=== PATIENT | female | born 1965 | race Caucasian/White ===

== ENCOUNTER 2021-08-01 08:16 | Emergency (ER) | payer OTHER ==
[2021-08-01 09:28] LABS: Appearance SLIGHTLY CLOUDY (CLEAR); Bilirubin SMALL (NEGATIVE); Blood NEGATIVE Ery/ul (0-5); Glucose NEGATIVE (NEGATIVE); Ketones TRACE (NEGATIVE); Leukocyte Esterase NEGATIVE (NEGATIVE); Mucus SLIGHT /HPF (NEGATIVE); Nitrite NEGATIVE (NEGATIVE); Protein,Urine Dip 30 (Negative); Specific Gravity 1.025 (1.005-1.025); Urobilinogen 4 mg/dL (0-1); WBC 0-2 /HPF (0-5)
[2021-08-01 09:46] LABS: ALBUMIN 4.5 g/dL (3.5-5.0); ALKALINE PHOSPHATASE 61 U/L (38-126); ANION GAP 14.9 MEQ/L (5-15); BLOOD UREA NITROGEN 12 mg/dL (7-17); CHLORIDE 107 mmol/L (98-107); Calcium 9.7 mg/dL (8.4-10.2); Carbon Dioxide 26 mmol/L (22-30); Creatinine 1 0.72 mg/dL (0.52-1.04); EST GLOMERULAR FILTRATION RATE > 60.0 ML/MIN; Glucose 91 mg/dL (74-106); Potassium 4.4 mmol/L (3.5-5.1); SGOT/AST 24 U/L (14-36); SGPT/ALT 20 U/L (0-35); SODIUM 143 mmol/L (137-145); Total Protein 7.4 g/dL (6.3-8.2)
[2021-08-01 09:50] LABS: White Blood Count 5.5 K/mm3 (4.0-10.5)
[2021-08-01 09:51] LABS: Absolute Neutrophil Ct (ANC) 2.61 (1.4-6.9); BASOPHIL % 0.4 % (0.0-0.4); Hematocrit 43.6 % (35-47); Hemoglobin 14.2 gm/dl (12.0-16.0); Lymphocytes % 42.2 % (24.0-44.0); Mean Cell Volume 93.8 fl (78-100); Mean Corpuscular Hemoglobin 30.5 pg (26-32); Mean Corpuscular Hgb Concent. 32.6 g/dl (32-36); Mean Platelet Volume 9.7 fl (7.5-11.0); Monocytes % 7.8 % (0.0-12.0); Neutrophil % 47.6 % (36.0-66.0); Platelet Count 304 K/mm3 (150-450); Red Blood Count 4.65 M/mm3 (4.1-5.4); Red Cell Distribution Width 14.7 % (11.5-14.0)
[2021-08-01 09:52] LABS: Basophil (Absolute #) 0.02 (0-0.4); Eosinophil (Absolute #) 0.11 (0-0.5); Lymphocyte (Absolute #) 2.31 (1.0-4.6); Monocyte (Absolute #) 0.43 (0.0-1.3)
[2021-08-01 09:53] VITALS: BP 128/75; PULSE 72; O2SAT 97
--- NOTE | 2021-08-01 12:06 | ERPHSYRPT ---
- History of Present Illness Time Seen by Provider: 08/01/21 08:24 Source: patient Exam Limitations: no limitations Patient Subjective Stated Complaint: PT BELIEVES SHE HAS A RECTAL FISTULA. BM THIS AM. SOFT, FORMED. Triage Nursing Assessment: ALERT AND ORIENTED. ABLE TO GIVE ALL INFORMATION. SKIN PWD. Physician History: 55 years old female with history of perirectal abscess many years ago presented to the ER after she noticed a small bump in the perianal area 2 to 3 days ago, pressed on it and currently does not feel any swelling or discharge. Patient reports having subjective feeling of fever and chills and some bilateral lateral flank area pain few days ago and is worried about having urinary tract infection . No abdominal pain otherwise currently. No nausea or vomiting. Subjective feeling of weakness all over but no focal. Denies any constipation or diarrhea. Allergies/Adverse Reactions: Penicillins Allergy (Severe, Verified 08/01/21 08:43) Anaphylactic Reaction Hx Tetanus, Diphtheria Vaccination/Date Given: Yes (1999) Hx Influenza Vaccination/Date Given: No Hx Pneumococcal Vaccination/Date Given: No Immunizations Up to Date: No Travel Risk - International Travel Have you traveled outside of the country in past 3 weeks: No - Coronavirus Screening Symptoms: Fever, Headaches/Body Aches/Fatigue Close contact with a COVID-19 positive Pt in past 14-21 Days: No - Vaccine Status Have you recieved a Covid-19 vaccination: No - Review of Systems Constitutional: Fever, Chills, Fatigue, Weakness Eyes: No Symptoms Ears, Nose, & Throat: No Symptoms Respiratory: No Symptoms Cardiac: No Symptoms Abdominal/Gastrointestinal: No Symptoms Genitourinary Symptoms: Dysuria Musculoskeletal: No Symptoms Skin: Skin Lesions Neurological: No Symptoms Psychological: No Symptoms Endocrine: No Symptoms Hematologic/Lymphatic: No Symptoms Immunological/Allergic: No Symptoms - Past Medical History Neurological History: No Pertinent History ENT History: No Pertinent History Cardiac History: No Pertinent History Respiratory History: No Pertinent History Endocrine Medical History: No Pertinent History Musculoskeletal History: Fractures GI Medical History: No Pertinent History History: No Pertinent History Psycho-Social History: No Pertinent History Female Reproductive Disorders: Endometriosis, Other - Past Surgical History Past Surgical History: Yes Neuro Surgical History: No Pertinent History Cardiac: No Pertinent History Respiratory: No Pertinent History Gastrointestinal: No Pertinent History Genitourinary: No Pertinent History Musculoskeletal: Orthopedic Surgery Female Surgical History: Tubal Ligation, Other Other Surgical History: ABLASION, WEIGHT LOSS SURGERY, VSG 6 YEARS AGO, - Social History Smoking Status: Current some day smoker Drug Use: none Patient Lives Alone: No (SPOUSE) - Female History Hx Now: No (ABLASION) - Nursing Vital Signs Nursing Vital Signs: Initial Vital Signs Temperature 98.3 F 08/01/21 08:31 Pulse Rate 90 08/01/21 08:31 Respiratory Rate 18 08/01/21 08:31 Blood Pressure 142/78 08/01/21 08:31 O2 Sat by Pulse Oximetry 98 08/01/21 08:31 Pain Scale Pain Intensity 0 - Physical Exam General Appearance: no apparent distress, alert, anxiety Eye Exam: PERRL/EOMI Ears, Nose, Throat Exam: normal ENT inspection, pharynx normal Neck Exam: normal inspection, supple, full range of motion Respiratory Exam: normal breath sounds, lungs clear Cardiovascular Exam: regular rate/rhythm, normal heart sounds Gastrointestinal/Abdomen Exam: soft, normal bowel sounds, No tenderness Rectal Exam: other (Small area of induration/draining at 9 o'clock position with minimal tenderness.), No hemorrhoids Extremity Exam: normal inspection, normal range of motion, pelvis stable Neurologic Exam: alert, oriented x 3, cooperative Skin Exam: normal color SpO2 Interpretation: normal SpO2: 97 O2 Delivery: Room Air Ordered Tests: Active Orders 24 hr Category Date Time Status CBC W DIFF Stat Lab 08/01/21 09:20 Completed CMP Stat Lab 08/01/21 09:20 Completed UA W/RFX UR CULTURE Stat Lab 08/01/21 09:17 Completed Lab/Rad Data: Laboratory Result Diagrams 08/01/21 09:20 08/01/21 09:20 Laboratory Results 08/01/21 08/01/21 08/01/21 Range/Units 09:20 09:20 09:17 WBC 5.5 (4.0-10.5) K/mm3 RBC 4.65 (4.1-5.4) M/mm3 Hgb 14.2 (12.0-16.0) gm/dl Hct 43.6 (35-47) % MCV 93.8 (78-100) fl MCH 30.5 (26-32) pg MCHC 32.6 (32-36) g/dl RDW 14.7 H (11.5-14.0) % Plt Count 304 (150-450) K/mm3 MPV 9.7 (7.5-11.0) fl Gran % 47.6 (36.0-66.0) % Eos # (Auto) 0.11 (0-0.5) Absolute Lymphs (auto) 2.31 (1.0-4.6) Absolute Monos (auto) 0.43 (0.0-1.3) Lymphocytes % 42.2 (24.0-44.0) % Monocytes % 7.8 (0.0-12.0) % Eosinophils % 2.0 (0.00-5.0) % Basophils % 0.4 (0.0-0.4) % Absolute Granulocytes 2.61 (1.4-6.9) Basophils # 0.02 (0-0.4) Sodium 143 (137-145) mmol/L Potassium 4.4 (3.5-5.1) mmol/L Chloride 107 (98-107) mmol/L Carbon Dioxide 26 (22-30) mmol/L Anion Gap 14.9 (5-15) MEQ/L BUN 12 (7-17) mg/dL Creatinine 0.72 (0.52-1.04) mg/dL Estimated GFR > 60.0 ML/MIN Glucose 91 (74-106) mg/dL Calcium 9.7 (8.4-10.2) mg/dL Total Bilirubin 0.40 (0.2-1.3) mg/dL AST 24 (14-36) U/L ALT 20 (0-35) U/L Alkaline Phosphatase 61 (38-126) U/L Serum Total Protein 7.4 (6.3-8.2) g/dL Albumin 4.5 (3.5-5.0) g/dL Urine Color JEFFREY (YELLOW) Urine Appearance SLIGHTLY CLOUDY (CLEAR) Urine pH 6.0 (5-6) Ur Specific [place] 1.025 (1.005-1.025) Urine Protein 30 (Negative) Urine Ketones TRACE (NEGATIVE) Urine Blood NEGATIVE (0-5) Tobin/ul Urine Nitrite NEGATIVE (NEGATIVE) Urine Bilirubin SMALL (NEGATIVE) Urine Urobilinogen 4 (0-1) mg/dL Ur Leukocyte Esterase NEGATIVE (NEGATIVE) Urine WBC (Auto) 0-2 (0-5) /HPF Urine RBC (Auto) 6-10 (0-2) /HPF U Epithel Cells (Auto) NONE (FEW) /HPF Urine Bacteria (Auto) NONE (NEGATIVE) /HPF Urine Mucus (Auto) SLIGHT (NEGATIVE) /HPF Urine Culture Reflexed NO (NO) Urine Glucose NEGATIVE (NEGATIVE) mg/dL - Progress Progress: unchanged Progress Note: 08/01/21 she is offered pain medication which she refused. Baseline work-up unremarkable. She has draining perirectal abscess and will put her on an tibiotic. Patient is advised to follow-up outpatient with PCP and general surgery. Placed on him. Counseled pt/family regarding: lab results, diagnosis, need for follow-up - Departure Departure Disposition: Home Clinical Impression: Abscess, perirectal Condition: Stable Critical Care Time: No Referrals: DOCTOR,NO FAMILY [Primary Care Provider] - SHARRI MORA [ACTIVE STAFF] - (Call tomorrow for reevaluation.) Instructions: MRSA (DC), Anal Abscess and Fistula, Adult (DC) Additional Instructions: Take Tylenol/ibuprofen as needed. Continue with antibiotics. Follow-up with primary care and general surgery for reevaluation. Return to ER for any worsening.
== END 2021-08-01 11:03 | disposition home or self-care (01) ==
LOC: ED 08:16
DX: K61.1 Rectal abscess (principal)
CPT/HCPCS: 36415; 80053; 81001; 85025; 99283